=== PATIENT | female | born 1985 | race Caucasian/White ===

== ENCOUNTER → 2018-10-18 | Outpatient (CLI) | payer OTHER | END | disposition home or self-care (01) | LOC: LAB EV 16:03 → LAB SHORT 16:03 | DX: N39.0 Urinary tract infection, site not specified (principal) | CPT/HCPCS: 87077; 87086; 87186 ==

== ENCOUNTER → 2019-03-10 | Outpatient (CLI) | payer OTHER | END | disposition home or self-care (01) | LOC: LAB 10:59 → LAB SHORT 10:59 | PROVIDERS: Internal Medicine | DX: Z01.419 Encounter for gynecological examination (general) (routine) without abnormal findings (principal) | CPT/HCPCS: G0145 ==

== ENCOUNTER 2021-02-15 18:50 | Emergency (ER) | payer OTHER ==
[~2021-02-15] VITALS: Ht 172.7 cm; Wt 98.4 kg
[2021-02-15] MEDS ORDERED: Cleocin HCl300 MG PO (20:57)
== END 2021-02-15 21:23 | disposition home or self-care (01) ==
LOC: ER 18:50
DX: S61.412A Laceration without foreign body of left hand, initial encounter (principal); Z88.1 Allergy status to other antibiotic agents; W26.0XXA Contact with knife, initial encounter
CPT/HCPCS: 12001; 90471; 90714; 99282-25; A9270

== ENCOUNTER 2021-12-08 06:06 | Day surgery (SDC) | payer OTHER ==
[~2021-12-08] VITALS: Ht 172.7 cm; Wt 97.2 kg
[~2021-12-08 06:06] MED LIST: CYCL10 PO; Cleocin HCl300 MG PO; HYDROCODONE-AC1 EA11 PO; OLME5TAB PO
[2021-12-08] MEDS ORDERED: LOSA25 PO (06:56)
[2021-12-08 07:27] LABS: Alanine Aminotransfer (ALT/SGP 21 U/L (12-78); Albumin, Blood 3.5 g/dL (3.4-5.0); Alk Phos 54 U/L (50-136); Anion Gap 6 mmol/L (6-16); Aspartate Aminotrans (AST/SGOT 18 U/L (12-37); Blood Urea Nitrogen 13 mg/dL (8-24); Bun/Creatinine Ratio 22.7 (12.0-20.0); CO2, Blood 22 mmol/L (21-32); Calcium, Blood 8.5 mg/dL (8.5-10.1); Chloride, Blood 111 mmol/L (98-108); Creatinine, Blood 0.57 mg/dL (0.40-1.00); Globulin, Blood 3.6 g/dL (2.2-4.0); Glomerular Filtration Rate >60 (60-); Glucose, Blood 92 mg/dL (70-99); Potassium, Blood 3.8 mmol/L (3.5-5.5); Sodium, Blood 139 mmol/L (136-145); Total Protein, Blood 7.1 g/dL (6.4-8.2)
--- NOTE | 2021-12-08 09:49 | NUR ---
12/08/21 0949 Odin Pedroza IUD INSPECTED BY AFTER REMOVAL. GIVEN OK TO DISPOSE OF IUD. WHYTE D/C AT END OF CASE. 400 CLEAR YELLOW URINE IN BAG.
[2021-12-08] MEDS ORDERED: IBUP800 PO (13:06)
== END 2021-12-08 13:50 | disposition home or self-care (01) ==
LOC: ORSCMMR 06:06 → ORD 07:30 → ORSCMMR 07:30 → BC 10:30 → ORSCMMR 13:50
PROVIDERS: Obstetrics & Gynecology
PROC: 0UT94ZZ Resection of Uterus, Percutaneous Endoscopic Approach (ICD-10-PCS; principal; 2021-12-08 07:30)
PROC: 8E0W4CZ Robotic Assisted Procedure of Trunk Region, Percutaneous Endoscopic Approach (ICD-10-PCS; principal; 2021-12-08 07:30)
PROC: 0UT74ZZ Resection of Bilateral Fallopian Tubes, Percutaneous Endoscopic Approach (ICD-10-PCS; principal; 2021-12-08 07:30)
DX: N92.0 Excessive and frequent menstruation with regular cycle (principal); N80.0 Endometriosis of uterus; K66.0 Peritoneal adhesions (postprocedural) (postinfection); N83.8 Other noninflammatory disorders of ovary, fallopian tube and broad ligament; I10 Essential (primary) hypertension; K21.9 Gastro-esophageal reflux disease without esophagitis; Z79.899 Other long term (current) drug therapy
CPT/HCPCS: 58571; S2900; 80053; 88307; A9270; J1100; J1580; J1885; J2250; J2405; J2704; J3010; J3475; J7120

== ENCOUNTER → 2023-06-08 | Outpatient (CLI) | payer OTHER ==
[~2023-06-08] MED LIST changes: +IBUP800 PO; +LOSA25 PO
== END ==
LOC: LAB SHORT 17:55 → LAB 17:55
DX: R30.0 Dysuria (principal)
CPT/HCPCS: 87086